=== PATIENT | female | born 1960 | race Caucasian/White ===

== ENCOUNTER → 2018-01-27 07:48 | Outpatient (CLI) | payer OTHER, SELFPAY ==
--- NOTE | 2018-01-27 07:54 | HPBI_ITS ---
MAMMOGRAPHY - BILATERAL SCREENING REASON FOR EXAM: Female, 57 years old. Routine annual screening examination. PERTINENT HISTORY: Non-contributory. TECHNIQUE: Digital bilateral breast be (3D mammographic acquisition) in the CC and MLO projections. 2-D mediolateral oblique (MLO) and craniocaudad (CC) views of both breasts were obtained. CAD: Full Field Digital Mammography with Computer Added Detection was performed. COMPARISON: None. Baseline examination. FINDINGS: Breast Composition: There are scattered areas of fibroglandular density. There are no dominant masses or suspicious calcifications. No other significant abnormalities are identified. HPBI/SCREENING MAMM (CAD), BILAT IMPRESSION: Negative screening mammogram. Yearly followup mammogram recommended. (A) ASSESSMENT CATEGORY: BIRADS Category 1: Negative. A letter regarding these results will be sent to the patient by the facility within 30 days. Approximately 10% of breast cancers are not detected by mammography. A normal mammogram should not delay biopsy of a clinically suspicious abnormality. [id number] Electronically Signed: Olvin Stoll MD at 9:23 EDT Tel [phone], Service support ,
== END ==
PROVIDERS: PCP Family Medicine; Visit Provider Family Medicine
DX: Z12.31 Encounter for screening mammogram for malignant neoplasm of breast (principal)
CPT/HCPCS: 77063; 77067

== ENCOUNTER → 2019-04-20 09:38 | Outpatient (CLI) | payer OTHER, SELFPAY ==
--- NOTE | 2019-04-20 09:57 | RAD_ITS ---
STUDY: X-RAY CHEST REASON FOR EXAM: Female, 58 years old. Chest and back pain. TECHNIQUE: Frontal and lateral views of the chest. COMPARISON: None. FINDINGS: The lungs are clear and expanded. There is no demonstrated pleural abnormality. Normal size heart. Normal mediastinum and jeremías. Normal visualized pulmonary arteries. Normal visualized aortic arch and descending thoracic aorta. Normal visualized thoracic spine. Normal visualized ribs, clavicles, and shoulders. There is no demonstrated abnormality of the visualized soft tissue structures of the upper abdomen. RAD/Chest PA and Lateral IMPRESSION: Normal x-ray examination of the chest. Electronically Signed: Gerardo Harris MD at 22:21 EDT , Service support ,
[2019-04-20 12:06] LABS: Absolute Lymphocyte Count 1.23 X10^3/ul (0.83-4.51); Absolute Neutrophil Count 3.8 X10^3/uL (2.0-7.7); Basophil# 0.01 X10^3/uL; Basophil% 0.2 % (0-1); Eosinophil# 0.02 X10^3/uL; Eosinophils% 0.4 % (0-5); Hematocrit 39.2 % (37-47); Hemoglobin 12.2 g/dl (12.0-15.0); Lymphocyte # 1.23 X10^3/ul (4.0); Lymphocyte % 22.3 % (19-41); Mean Corp Hgb Conc 31.1 g/gl (32-36); Mean Corpuscular Hgb 29.2 pg (27.0-32.0); Mean Corpuscular Volume 93.8 fL (81-99); Mean Platelet Vol. 10.5 fl (6.2-12.0); Monocyte# 0.43 X10^3/uL; Monocyte% 7.8 % (0-10); Neutrophil # 3.82 X10^3/uL (2.7-7.7); Neutrophil % 69.3 % (47-70); Platelet Count 270 K/mm3 (150-450); RBC Distribution Width CV 13.2 % (11.6-14.6); RBC Distribution Width SD 43.9 fl (35.1-43.9); Red Blood Count 4.18 M/mm3 (4.2-5.4); White Blood Count 5.5 K/mm3 (4.4-11.0)
[2019-04-20 12:07] LABS: POSITIVE COUNT NO; POSITIVE DIFFERENTIAL NO; POSITIVE MORPHOLOGY NO
[2019-04-20 12:50] LABS: AST(SGOT) 21 U/L (15-37); Alanine Aminotransfer ALT/SGPT 28 U/L (13-56); Albumin, Serum 3.8 g/dL (3.2-5.0); Alkaline Phosphatase 75 U/L (45-117); Anion Gap 6 (5-15); BUN 15 mg/dL (7-18); BUN/Creat Ratio 23.4 RATIO (10-20); Calcium,Total 8.9 mg/dL (8.5-10.1); Chloride 105 mmol/L (98-107); Cholesterol 222 mg/dL (200); Creatinine, Serum 0.64 mg/dL (0.55-1.02); EST Glomerular Filtration Rate 100 mL/min (>60); Est Glom Filt Rate - Afr Amer 121 mL/min (>60); Globulin 3.8 g/dL (2.2-4.2); Glucose 92 mg/dL (74-106); High Density Lipoprotein 63 mg/dL; Potassium 4.2 mmol/L (3.5-5.1); Protein, Total 7.6 g/dL (6.4-8.2); Sodium Level 139 mmol/L (136-145); Triglycerides 150 mg/dL; Very Low Density Lipoprotein 30 mg/dL (5-40)
== END ==
PROVIDERS: Family Provider Family Medicine; PCP Family Medicine; Referring Provider Family Medicine; Visit Provider Family Medicine
DX: R07.89 Other chest pain (principal)
CPT/HCPCS: 36415; 71046; 80053; 80061; 85025

== ENCOUNTER → 2019-04-28 11:22 | Outpatient (CLI) | payer OTHER, SELFPAY ==
--- NOTE | 2019-04-29 14:10 | STRESSREP ---
Stress Test Report Date: April 28, 2019 Procedure: Exercise tolerance test Indications: Chest pain Consent: Per the patient Procedure: The patient exercised on a Quinten protocol for 8 minutes and 30 seconds achieving a peak heart rate of 164 bpm (102 % predicted maximal heart rate) with a peak blood pressure 190/72 mmHg and a peak MET capacity of approximately 10.1 mET's. The baseline ECG demonstrated normal sinus rhythm, nonspecific ST-T changes. The peak exercise ECG demonstrated sinus tachycardia with 1 to [address] depression in the inferior and lateral leads. [There were no cardiac dysrhythmias pretest, during exercise, or recovery]. The functional capacity was considered normal for age. The patient had no complaint of chest discomfort during exercise or recovery. The examination was discontinued secondary to fatigue. Impression: 1. Technically adequate (percent predicted maximal heart rate greater than 85%) exercise tolerance test 2. Exercise stress test was positive for exercise-induced EKG changes of ischemia. 3. The test is negative for exercise-induced chest pain. 3. [There were no cardiac dysrhythmias during exercise or recovery] This note was generated with [employer] software. It may contain incorrect words, spelling, and punctuation that were not noted in checking the note before signing.
--- NOTE | 2019-04-29 14:32 | STRESSREP_ITS ---
Stress Test Report Date: April 28, 2019 Procedure: Exercise tolerance test Indications: Chest pain Consent: Per the patient Procedure: The patient exercised on a Quinten protocol for 8 minutes and 30 seconds achieving a peak heart rate of 164 bpm (102 % predicted maximal heart rate) with a peak blood pressure 190/72 mmHg and a peak MET capacity of approximately 10.1 mET's. The baseline ECG demonstrated normal sinus rhythm, nonspecific ST-T changes. The peak exercise ECG demonstrated sinus tachycardia with 1 to [address] depression in the inferior and lateral leads. [There were no cardiac dysrhythmias pretest, during exercise, or recovery]. The functional capacity was considered normal for age. The patient had no complaint of chest discomfort during exercise or recovery. The examination was discontinued secondary to fatigue. Impression: 1. Technically adequate (percent predicted maximal heart rate greater than 85%) exercise tolerance test 2. Exercise stress test was positive for exercise-induced EKG changes of ischemia. 3. The test is negative for exercise-induced chest pain. 3. [There were no cardiac dysrhythmias during exercise or recovery] This note was generated with [employer] software. It may contain incorrect words, spelling, and punctuation that were not noted in checking the note before signing.
== END ==
PROVIDERS: Family Provider Family Medicine; PCP Family Medicine; Referring Provider Family Medicine; Visit Provider Family Medicine
DX: R07.89 Other chest pain (principal)
CPT/HCPCS: 93017

== ENCOUNTER → 2019-05-26 06:15 | Outpatient (CLI) | payer OTHER, SELFPAY ==
[2019-05-04 11:46] VITALS: BMI 23.3
--- NOTE | 2019-05-31 09:53 | STRESSREP ---
Stress Test Report Date: 05/26/2019 Procedure: Exercise tolerance test/imaging study Indications: [Abnormal treadmill stress test] Consent: Per the patient Procedure: The patient exercised on a Quinten protocol for 8 minutes and 30 seconds achieving a peak heart rate of 166 bpm (104 % predicted maximal heart rate) with a peak blood pressure 198/68 mmHg and a peak MET capacity of 10.1 METs. The baseline ECG demonstrated normal sinus rhythm, no significant ST-T changes. The peak exercise ECG demonstrated sinus tachycardia with about [address] depressions in the inferior and lateral leads. EKG during recovery revealed return of ST segments to baseline [There were no cardiac dysrhythmias pretest, during exercise, or recovery]. The functional capacity was considered above average for age. There was [no complaint of chest discomfort during exercise or recovery]. The examination was discontinued secondary to dyspnea. Impression: 1. Technically adequate (percent predicted maximal heart rate greater than 85%) exercise tolerance test 2. Stress test is negative for exercise-induced EKG changes of ischemia 3. The test test negative for exercise-induced chest pain 4. Functional capacity is above average for age 5. Nuclear images pending Myocardial perfusion imaging study: Technique: The patient was injected with 11.8 mCi of technetium 99m Cardiolite and subsequently rest SPECT Cardiolite nuclear imaging was obtained in the horizontal long, vertical long, and short axis views. The patient exercised on a Quinten protocol. Please see above for details. The patient was injected with 33.1 mCi of technetium 99m Cardiolite and subsequently stress SPECT Cardiolite nuclear imaging was obtained in the horizontal long, vertical long, and short axis views. A gated Cardiolite study at peak stress was obtained. Interpretation: Rest and stress SPECT Cardiolite nuclear imaging status post realignment, normalization, and attenuation correction, demonstrates normal myocardial radioisotope uptake in the rest and stress images. The gated Cardiolite study demonstrates no significant regional wall motion abnormalities. The reported LVEF is greater than 70%. Impression: 1. There is no evidence of significant ischemia or infarction. 2. The gated Cardiolite study reports an LVEF of greater than 70 %. This note was generated with [employer] software. It may contain incorrect words, spelling, and punctuation that were not noted in checking the note before signing.
== END ==
PROVIDERS: Family Provider Family Medicine; PCP Family Medicine; Referring Provider Family Medicine; Visit Provider Family Medicine
DX: R94.39 Abnormal result of other cardiovascular function study (principal)
CPT/HCPCS: 78452; 93017; A9500; A4216

== ENCOUNTER → 2024-09-09 | Outpatient (CLI) | payer MEDICARE, SELFPAY ==
--- NOTE | 2024-09-09 11:40 | BD_ITS ---
STUDY: DUAL ENERGY X-RAY ABSORPTIOMETRY / DXA REASON FOR EXAM: Female, 64 years old. V76.12ScreeningBONE DENSITY REASON FOR EXAM TECHNIQUE: Bone Mineral Density (BMD) measurements of lumbar spine and bilateral hips were obtained. COMPARISON: None. FINDINGS: Lumbar Spine (L1-L4): g/cm2 (0.848) / T-score (-1.8) / Z-score (0.0) Findings are suggestive of osteopenia with a moderate fracture risk. Left Femur Total: g/cm2 (0.628) / T-score (-2.6) / Z-score (-1.3) Left Femoral Neck: g/cm2 (0.526) / T-score (-2.9) / Z-score (-1.3) Right Femur Total: g/cm2 (0.590) / T-score (-2.9) / Z-score (-1.6) Right Femoral Neck: g/cm2 (0.510) / T-score (-3.1) / Z-score (-1.5) BD/Dexa Bone Density Study IMPRESSION: The patient is considered osteoporotic as outlined below according to World Jovanny Organization (WHO) criteria with a high fracture risk. Reference Information: The T-score is the number of standard deviations above or below the standard which is normal for young adults at their peak bone mineral density. The World Health Organization (WHO) interprets the T-scores as follows: Above -1 Normal bone density Between -1 and -2.5 Osteopenia Equal to / or below -2.5 Osteoporosis As a practical clinical guideline, osteopenia may be graded as follows: Mild -1 through -1.5 Moderate -1.6 through -2.0 Severe -2.1 through -2.4 The Z-score is the number of standard deviations above or below age-matched controls. A Z-score of less than -1.5 would be considered abnormal. References: 1. NIH Osteoporosis and Related Bone Diseases www osteo.org 2. International Society for Clinical Densitometry www iscd.org 3. National Osteoporosis Foundation www nof.org Electronically Signed: Olvin Stoll MD at 10:11 EDT ,
--- NOTE | 2024-09-09 11:40 | BI_ITS ---
MAMMOGRAPHY - BILATERAL SCREENING REASON FOR EXAM: Female, 64 years old. Routine annual screening examination. PERTINENT HISTORY: Non-contributory. TECHNIQUE: Digital bilateral breast edmund (3D mammographic acquisition) in the CC and MLO projections. 2-D mediolateral oblique (MLO) and craniocaudad (CC) views of both breasts were obtained. CAD: Full Field Digital Mammography with Computer Added Detection was performed. COMPARISON: Comparison is made with prior study dated January 27, 2018. FINDINGS: Breast Composition: There are scattered areas of fibroglandular density. There are no dominant masses or suspicious calcifications. No other significant abnormalities are identified. There has been no significant change since the prior study. BI/SCRN MAMM (CAD)W/EDMUND BILAT IMPRESSION: Stable bilateral screening mammogram. Yearly follow-up mammogram recommended. (A) ASSESSMENT CATEGORY: BIRADS Category 1: Negative. A letter regarding these results will be sent to the patient by the facility within 30 days. Approximately 10% of breast cancers are not detected by mammography. A normal mammogram should not delay biopsy of a clinically suspicious abnormality. [id number] Electronically Signed: Olvin Stoll MD at 13:11 EDT ,
== END | disposition home or self-care (01) ==
PROVIDERS: PCP Family Medicine; Referring Provider Family Medicine; Visit Provider Family Medicine
DX: Z12.31 Encounter for screening mammogram for malignant neoplasm of breast (principal); N95.9 Unspecified menopausal and perimenopausal disorder
CPT/HCPCS: 77063; 77067; 77080

== ENCOUNTER → 2025-07-14 | Outpatient (CLI) | payer MEDICARE, SELFPAY ==
--- NOTE | 2025-07-14 11:50 | RAD_ITS ---
EXAM: XR Lumbosacral Spine, 4 or 5 Views CLINICAL INDICATION: LOW BACK PAIN, DOWN LEFT SIDE TECHNIQUE: Frontal, lateral and bilateral oblique views of the lumbar spine. COMPARISON: No relevant prior studies available. FINDINGS: VERTEBRAE: Anterior spondylolisthesis of L4 over L5 by 14 mm. Mild facet arthropathy of L3 to S1 with endplate degenerative changes and disc degeneration. No acute fracture. SACRUM/COCCYX: Unremarkable as visualized. No acute fracture. DISC SPACES: No acute findings. No significant narrowing. SOFT TISSUES: Unremarkable. RAD/L/S Spine Min 4 Views IMPRESSION: 1. Anterior spondylolisthesis of L4 over L5 by 14 mm. 2. If symptoms persist, further evaluation with MRI is recommended. Reading Location: [id number]
--- OUTSIDE RECORDS SUMMARY | 2025-07-14 15:49 | XMS RPT_ITS | CCD ---
Author Organization [place] [employer] [facility] Care Team Providers Care Nurse Research Name Role Phone Ngoc Foley Referring Unavailable Ngoc Foley Attending Unavailable Ngoc Foley Primary Care Unavailable JANICE VALENZUELA, DR SAVAGE Primary Care Physician [phone] MER CLOUD Attending Unavailable DR NGOC FOLEY MD Primary Care Unavailable Problems Problem Classification Problem Date Documented Da te Episodic/Chronic Other screening for suspected conditions (not mental disorders or infectious disease) (1 source) Encounter for screening mammogram for malignant neoplasm of breast; Translations: [Encounter for screening mammogram for malignant neoplasm of breast] Onset: 09-29-2024 Episodic Results Test Name Value Interpretation Reference Range Facil ity Dexa Bone Density Studyon Dexa Bone Density Study [facility] Imaging Services [address] [place] [address] Dexa Bone Density Study MR#: [id number] Acct: [id number] Name: ZOEY TOLBERT Rep #: [id number] : 1960 F 64 From: Olvin romero MD PCP: Dr. Ngoc Foley MD Status: REG [facility] Study: Dexa Bone Density Study Date of Exam: 09/09/24 Exam# [id number] Ordering Dr: Ngoc Foley MD [id number] STUDY: DUAL ENERGY X-RAY ABSORPTIOMETRY / DXA REASON FOR EXAM: Female, 64 years old. V76.12ScreeningBONE DENSITY REASON FOR EXAM TECHNIQUE: Bone Mineral Density (BMD) measurements of lumbar spine and bilateral hips were obtained. COMPARISON: None. FINDINGS: Lumbar Spine (L1-L4): g/cm2 (0.848) / T-score (-1.8) / Z-score (0.0) Findings are suggestive of osteopenia with a moderate fracture risk. Left Femur Total: g/cm2 (0.628) / T-score (-2.6) / Z-score (-1.3) Left Femoral Neck: g/cm2 (0.526) / T-score (-2.9) / Z-score (-1.3) Right Femur Total: g/cm2 (0.590) / T-score (-2.9) / Z-score (-1.6) Right Femoral Neck: g/cm2 (0.510) / T-score (-3.1) / Z-score (-1.5) BD/Dexa Bone Density Study IMPRESSION: The patient is considered osteoporotic as outlined below according to World Jovanny Organization (WHO) criteria with a high fracture risk. Reference Information: The T-score is the number of standard deviations above or below the standard which is normal for young adults at their peak bone mineral density. The World Health Organization (WHO) interprets the T-scores as follows: Above -1 Normal bone density Between -1 and -2.5 Osteopenia Equal to / or below -2.5 Osteoporosis As a practical clinical guideline, osteopenia may be graded as follows: Mild -1 through -1.5 Moderate -1.6 through -2.0 Severe -2.1 through -2.4 The Z-score is the number of standard deviations above or below age-matched controls. A Z-score of less than -1.5 would be considered abnormal. References: 1. NIH Osteoporosis and Related Bone Diseases www osteo.org 2. International Society for Clinical Densitometry www iscd.org 3. National Osteoporosis Foundation www nof.org Electronically Signed: Olvin Stoll MD at 10:11 EDT , CC: Dr. Ngoc Foley MD Product Development Actuary: Signed Normal [facility] SCRN MAMM (CAD)W/EDMUND BILATo n 09-09-2024 SCRN MAMM (CAD)W/EDMUND BILAT [facility] Imaging Services [address] [place] [address] SCRN MAMM (CAD)W/EDMUND BILAT MR#: [id number] Acct: [id number] Name: ZOEY TOLBERT Rep #: [id number] : 1960 64 From: Olvin romero MD PCP: Dr. Ngoc Foley MD Status: REG CL Study: SCRN MAMM (CAD)W/EDMUND BILAT Date of Exam: 08/17 04/08 Exam# [id number] Ordering Dr: Ngoc Foley MD [id number] MAMMOGRAPHY - BILATERAL SCREENING REASON FOR EXAM: Female, 64 years old. Routine annual screening examination. PERTINENT HISTORY: Non-contributory. TECHNIQUE: Digital bilateral breast edmund (3D mammographic acquisition) in the CC and MLO projections. 2-D mediolateral oblique (MLO) and craniocaudad (CC) views of both breasts were obtained. CAD: Full Field Digital Mammography with Computer Added Detection was performed. COMPARISON: Comparison is made with prior study dated January 27, 2018. FINDINGS: Breast Composition: There are scattered areas of fibroglandular density. There are no dominant masses or suspicious calcifications. No other significant abnormalities are identified. There has been no significant change since the prior study. BI/SCRN MAMM (CAD)W/EDMUND BILAT IMPRESSION: Stable bilateral screening mammogram. Yearly follow-up mammogram recommended. (A) ASSESSMENT CATEGORY: BIRADS Category 1: Negative. A letter regarding these results will be sent to the patient by the facility within 30 days. Approximately 10% of breast cancers are not detected by mammography. A normal mammogram should not delay biopsy of a clinically suspicious abnormality. [id number] Electronically Signed: Olvin Stoll MD at 13:11 EDT , CC: Dr. Ngoc Foley MD Product Development Actuary: Signed [facility] Vital Signs Date Time Vital Sign Value Performing Clinician Faci lity 10-17-2024 09:27-0500 Diastolic Blood Pressure Non-Invasive 67 mm[Hg] DR MER CLOUD MD [facility] 10-17-2024 09:27-0500 Heart rate 73 /min DR MER CLOUD MD [facility] 10-17-2024 09:27-0500 Respiratory rate 18 /min DR MER CLOUD MD [facility] 10-17-2024 09:27-0500 Systolic Blood Pressure Non-Invasive 134 mm[Hg] DR MER CLOUD MD [facility] 10-17-2024 09:20-0500 Diastolic Blood Pressure Non-Invasive 78 mm[Hg] DR MER CLOUD MD [facility] 10-17-2024 09:20-0500 Heart rate 78 /min DR MER CLOUD MD [facility] 10-17-2024 09:20-0500 Respiratory rate 20 /min DR MER CLOUD MD [facility] 10-17-2024 09:20-0500 Systolic Blood Pressure Non-Invasive 133 mm[Hg] DR MER CLOUD MD [facility] 10-17-2024 09:13-0500 Diastolic Blood Pressure Non-Invasive 66 mm[Hg] DR MER CLOUD MD [facility] 10-17-2024 09:13-0500 Heart rate 74 /min DR MER CLOUD MD [facility] 10-17-2024 09:13-0500 Respiratory rate 16 /min DR MER CLOUD MD [facility] 10-17-2024 09:13-0500 Systolic Blood Pressure Non-Invasive 119 mm[Hg] DR MER CLOUD MD [facility] 10-17-2024 09:05-0500 Body temperature 97.7 [degF] DR MER CLOUD MD [facility] 10-17-2024 09:00-0500 Respiratory Rate - Anes 21 br/min DR MER CLOUD MD [facility] 10-17-2024 08:55-0500 Respiratory Rate - Anes 22 br/min DR MER CLOUD MD [facility] 10-17-2024 08:50-0500 Respiratory Rate - Anes 15 br/min DR MER CLOUD MD [facility] 10-17-2024 07:53-0500 Body height 176.[address] MER CLOUD MD [facility] 10-17-2024 07:53-0500 Body temperature 97.34 [degF] DR MER CLOUD MD [facility] 10-17-2024 07:53-0500 Body weight 61.[address] MER CLOUD MD [facility] 10-17-2024 07:53-0500 Heart rate 75 /min DR MER CLOUD MD [facility] Encounters Encounter Date Encounter Type Care Provider Facility Start: 10-17-2024 End: 10-17-2024 ambulatory MER CLOUD Facility:[facility] Start: 10-17-2024 End: 10-17-[address] MER CLOUD MD [facility] Start: 09-09-2024 End: 09-09-2024 ambulatory Ngoc Foley Facility:[facility] Procedures Date Procedure Procedure Detail Performing Clinician Colonoscopy DR MER CABEZAS MD Payers Date Payer Category Payer Medicare [id number] 2024 Self-pay 1960 Unknown [id number] Unknown [id number] Social History Date Type Detail Facility Start: 10-17-2024 Tobacco smoking status Never s moked tobacco (finding) [facility] Sex Assigned At Female [facility] Functional Status Date Assessment Result Facility 10-17-2024 Functional Status Repositions self [facility] 10-17-2024 Functional Status Maintained [facility] Mental Status Date Assessment Result Facility 10-17-2024 Mental Status Oriented x 4 [facility] Evaluation + Plan note 10-17-2024 Note Date & Type Note Facility 10-17-2024 Evaluation + Plan note Extrac demond from: Title:Clinical Document Author:MER CLOUD Date:10/17/24 [place] ADMISSION HISTORY AN D PHYSICIAL CHIEF COMPLAINT: HISTORY OF PRESENT ILLNESS: REVIEW OF SYSTEMS: ACTIVE PROBLEMS: No qualifying data available for Problems MEDICATIONS: Active Inpt Meds: None Active PRN Meds: None One Time Meds: None Active IV Meds: Lactated Ringers Infusion 1,000 mL (LR 1,000 mL) Start: 10/17/24 7:52:00 EST, Rate: 50 mL/hr, 10/17/24 7:52:00 EST Sodium Chloride 0.9% intravenous solution 500 mL (Normal Saline 500 mL 500 mL) Start: 10/17/24 7:58:00 EST, Rate: 20 mL/hr, 10/17/24 7:58:00 EST ALLERGIES: (1) NKA FAMILY HISTORY: SOCIAL HISTORY: PHYSICAL EXAM: VITALS: FwponbUlrmWNIfggdSLViQ3EZV5CaoyEx(kg) 10/17 07:5336.3--75----RA10/17 61.4 24 Hr Tmax: 36.3 at 10/17 07:53 36 Hr Tmax: 36.3 at 10/17 07:53 Vital Signs are the last 5 in the past 48 hours. Weights display the last 5 within 7 days. Initial Wt: 10/17 61.4 kg 135 lb Current Wt: 10/17 61.4 kg 135 lb GENERAL: HEENT: CARDIOVASCULAR: RESPIRATORY: ABDOMEN: EXREMETIES: NEUROLOGICAL: PSYCHIATRIC: LABS: No 36hr Lab Data DIAGNOSTICS: IMPRESSION: PLAN: History and Physical Update I have examined the patient; reviewed the H&P and there are no changes to the H&P unless noted below. [facility] Hospital Discharge instructions 10-17-2024 Note Date & Type Note Facility 10-17-2024 Hospital Discharg e instructions Patient Education 10/17/2024 09:12:09 Monitored Anesthesia Care, Care After Monitored Anesthesia Care, Care After These instructions provide you with information about caring for yourself after your procedure. Your health care provider may also give you more specific instructions. Your treatment has been planned according to current medical practices, but problems sometimes occur. Call your health care provider if you have any problems or questions after your procedure. What can I expect after the procedure? After your procedure, you may: Feel sleepy for several hours. Feel clumsy and have poor balance for several hours. Feel forgetful about what happened after the procedure. Have poor judgment for several hours. Feel nauseous or vomit. Have a sore throat if you had a breathing tube during the procedure. Follow these instructions at home: For at least 24 hours after the procedure: Have a responsible adult stay with you. It is important to have someone help care for you until you are awake and alert. Rest as needed. Do not: ?Participate in activities in which you could fall or become injured. ?Drive. ?Use heavy machinery. ?Drink alcohol. ?Take sleeping pills or medicines that cause drowsiness. ?Make important decisions or sign legal documents. ?Take care of children on your own. Eating and drinking Follow the diet that is recommended by your health care provider. If you vomit, drink water, juice, or soup when you can drink without vomiting. Make sure you have little or no nausea before eating solid foods. General instructions Take gofl-fxe-bzokkbm and prescription medicines only as told by your health care provider. If you have sleep apnea, surgery and certain medicines can increase your risk for breathing problems. Follow instructions from your health care provider about wearing your sleep device: ?Anytime you are sleeping, including during daytime naps. ?While taking prescription pain medicines, sleeping medicines, or medicines that make you drowsy. If you smoke, do not smoke without supervision. Keep all follow-up visits as told by your health care provider. This is important. Contact a health care provider if: You keep feeling nauseous or you keep vomiting. You feel light-headed. You develop a rash. You have a fever. Get help right away if: You have trouble breathing. Summary For several hours after your procedure, you may feel sleepy and have poor judgment. Have a responsible adult stay with you for at least 24 hours or until you are awake and alert. This information is not intended to replace advice given to you by your health care provider. Make sure you discuss any questions you have with your health care provider. Document Released: 02/22/2017 Document Revised: 01/31/2019 Document Reviewed: 02/22/2017 [employer] Patient Education 2020 [employer]. 10/17/2024 09:12:00 Colonoscopy, Adult, Care After, Scdn-bg-Ccrm Colonoscopy, Adult, Care After This sheet gives you information about how to care for yourself after your procedure. Your doctor may also give you more specific instructions. If you have problems or questions, call your doctor. What can I expect after the procedure? After the procedure, it is common to have: A small amount of blood in your poop for 24 hours. Some gas. Mild cramping or bloating in your belly. Follow these instructions at home: General instructions For the first 24 hours after the procedure: ?Do not drive or use machinery. ?Do not sign important documents. ?Do not drink alcohol. ?Do your daily activities more slowly than normal. ?Eat foods that are soft and easy to digest. Take znzj-rzn-dtdlruu or prescription medicines only as told by your doctor. To help cramping and bloating: Try walking around. Put heat on your belly (abdomen) as told by your doctor. Use a heat source that your doctor recommends, such as a moist heat pack or a heating pad. ?Put a towel between your skin and the heat source. ?Leave the heat on for 20 30 minutes. ?Remove the heat if your skin turns bright red. This is especially important if you cannot feel pain, heat, or cold. You can get burned. Eating and drinking Drink enough fluid to keep your pee (urine) clear or pale yellow. Return to your normal diet as told by your doctor. Avoid heavy or fried foods that are hard to digest. Avoid drinking alcohol for as long as told by your doctor. Contact a doctor if: You have blood in your poop (stool) 2 3 days after the procedure. Get help right away if: You have more than a small amount of blood in your poop. You see large clumps of tissue (blood clots) in your poop. Your belly is swollen. You feel sick to your stomach (nauseous). You throw up (vomit). You have a fever. You have belly pain that gets worse, and medicine does not help your pain. Summary After the procedure, it is common to have a small amount of blood in your poop. You may also have mild cramping and bloating in your belly. For the first 24 hours after the procedure, do not drive or use machinery, do not sign important documents, and do not drink alcohol. Get help right away if you have a lot of blood in your poop, feel sick to your stomach, have a fever, or have more belly pain. This information is not intended to replace advice given to you by your health care provider. Make sure you discuss any questions you have with your health care provider. Document Released: 12/05/2011 Document Revised: 09/02/2018 Document Reviewed: 07/27/2017 [employer] Patient Education 2020 [employer]. Follow Up Care 09/21/2024 10:58:52 With:MER CLOUD MD Address: [address] [facility] [facility] [address] [place] [address] [phone] When: Unknown Comments:CALL DR CLOUD WITH ANY QUESTIONS OR CONCERNS. GO TO THE EMERGENCY ROOM WITH ANY URGENT CONCERNS. [facility] Clinical Note 10-17-2024 Note Date & Type Note Facility 10-17-2024 Note Discharge Instructions Thank you for allowing [facility] to assist you with your healthcare needs. The following is important discharge information regarding your hospital visit. Your Care Team NGOC FOLEY MD, DR.. Your Diagnosis CLEAN COLONOSCOPY. What to do next Follow Up Appointments Follow Up with MER CLOUD MD [address] [facility] [address] [place] [phone] Additional Information: CALL DR CLOUD WITH ANY QUESTIONS OR CONCERNS. GO TO THE EMERGENCY ROOM WITH ANY URGENT CONCERNS. The Following Activity and Diet Have Been Ordered for You Discharge Activity - Ordered -- NO activity restrictions, 10/17/24 9:02:00 EST Discharge Diet - Ordered -- Follow the post-operative/post-procedure diet instructions provided by your physician's office., 10/17/24 9:02:00 EST The Following Equipment Has Been Ordered for You Discharge Home Equipment Discharge Wound Care - Ordered -- Follow the post-operative/post-procedure wound care instructions provided by your physician's office., 10/17/24 9:02:00 EST Allergies NKA Medications Please ask your primary doctor or pharmacist before taking any other medication not listed, including over the counter drugs, herbal medications, vitamins and or supplements as they may interact with your home medications. Please take this list to your next doctor s visit. Bring all medications you take, including over the counter medications, herbals and other supplements with you to your doctor s visit. Patients and families are reminded to discard old lists and to update any records with all medication providers or retail pharmacies. Education Materials Monitored Anesthesia Care, Care After These instructions provide you with information about caring for yourself after your procedure. Your health care provider may also give you more specific instructions. Your treatment has been planned according to current medical practices, but problems sometimes occur. Call your health care provider if you have any problems or questions after your procedure. What can I expect after the procedure? After your procedure, you may: Feel sleepy for several hours. Feel clumsy and have poor balance for several hours. Feel forgetful about what happened after the procedure. Have poor judgment for several hours. Feel nauseous or vomit. Have a sore throat if you had a breathing tube during the procedure. Follow these instructions at home: For at least 24 hours after the procedure: Have a responsible adult stay with you. It is important to have someone help care for you until you are awake and alert. Rest as needed. Do not: ? Participate in activities in which you could fall or become injured. ? Drive. ? Use heavy machinery. ? Drink alcohol. ? Take sleeping pills or medicines that cause drowsiness. ? Make important decisions or sign legal documents. ? Take care of children on your own. Eating and drinking Follow the diet that is recommended by your health care provider. If you vomit, drink water, juice, or soup when you can drink without vomiting. Make sure you have little or no nausea before eating solid foods. General instructions Take aebv-rto-yvdkiis and prescription medicines only as told by your health care provider. If you have sleep apnea, surgery and certain medicines can increase your risk for breathing problems. Follow instructions from your health care provider about wearing your sleep device: ? Anytime you are sleeping, including during daytime naps. ? While taking prescription pain medicines, sleeping medicines, or medicines that make you drowsy. If you smoke, do not smoke without supervision. Keep all follow-up visits as told by your health care provider. This is important. Contact a health care provider if: You keep feeling nauseous or you keep vomiting. You feel light-headed. You develop a rash. You have a fever. Get help right away if: You have trouble breathing. Summary For several hours after your procedure, you may feel sleepy and have poor judgment. Have a responsible adult stay with you for at least 24 hours or until you are awake and alert. This information is not intended to replace advice given to you by your health care provider. Make sure you discuss any questions you have with your health care provider. Document Released: 02/22/2017 Document Revised: 01/31/2019 Document Reviewed: 02/22/2017 [employer] Patient Education 2020 [employer]. Colonoscopy, Adult, Care After This sheet gives you information about how to care for yourself after your procedure. Your doctor may also give you more specific instructions. If you have problems or questions, call your doctor. What can I expect after the procedure? After the procedure, it is common to have: A small amount of blood in your poop for 24 hours. Some gas. Mild cramping or bloating in your belly. Follow these instructions at home: General instructions For the first 24 hours after the procedure: ? Do not drive or use machinery. ? Do not sign important documents. ? Do not drink alcohol. ? Do your daily activities more slowly than normal. ? Eat foods that are soft and easy to digest. Take ehku-jtw-dudsseg or prescription medicines only as told by your doctor. To help cramping and bloating: Try walking around. Put heat on your belly (abdomen) as told by your doctor. Use a heat source that your doctor recommends, such as a moist heat pack or a heating pad. ? Put a towel between your skin and the heat source. ? Leave the heat on for 20 30 minutes. ? Remove the heat if your skin turns bright red. This is especially important if you cannot feel pain, heat, or cold. You can get burned. Eating and drinking Drink enough fluid to keep your pee (urine) clear or pale yellow. Return to your normal diet as told by your doctor. Avoid heavy or fried foods that are hard to digest. Avoid drinking alcohol for as long as told by your doctor. Contact a doctor if: You have blood in your poop (stool) 2 3 days after the procedure. Get help right away if: You have more than a small amount of blood in your poop. You see large clumps of tissue (blood clots) in your poop. Your belly is swollen. You feel sick to your stomach (nauseous). You throw up (vomit). You have a fever. You have belly pain that gets worse, and medicine does not help your pain. Summary After the procedure, it is common to have a small amount of blood in your poop. You may also have mild cramping and bloating in your belly. For the first 24 hours after the procedure, do not drive or use machinery, do not sign important documents, and do not drink alcohol. Get help right away if you have a lot of blood in your poop, feel sick to your stomach, have a fever, or have more belly pain. This information is not intended to replace advice given to you by your health care provider. Make sure you discuss any questions you have with your health care provider. Document Released: 12/05/2011 Document Revised: 09/02/2018 Document Reviewed: 07/27/2017 [employer] Patient Education 2020 [employer] Additional Information VACCINATE! IT SAVES LIVES! Members of the community who have not yet received the COVID-19 vaccine and would like to receive it can visit one of [facility] vaccine clinics. There are many vaccine clinic locations within the [facility]. For locations and available times, please visit [email or web address] It is important to note that some COVID mobile vaccine clinics are held outdoors and may be canceled in rainy or stormy conditions. To learn more about pediatric vaccinations (ages 5-11), we invite you to visit the [facility] webpage. [email or web address]/pages/[email or web address] 134-Pfstt-Qyxramtbvcj-Frequently-Asked -Questions.html To learn more about the COVID-19 vaccine, we invite you to visit the CDC website for a list of frequently asked questions.https://www.cdc.gov/coronavi betsy/2019-ncov/vaccines/faq.html [employer] Patient Portal Access Instructions: Stay connected with your healthcare team and access your personal medical information anytime with the [employer] Patient Portal. Please follow the directions below to create your [employer] account: 1.Access the email account you provided upon registration to the hospital/physician office.2.Look for an invitation email from [facility].3.Open the email and access the invitation link: Accept Invitation to [employer].4.Fill in the required boss to create your account. To access your account, visit [email or web address]. Click the blue button labeled Access Patient Portal and then log in with the username and password that you created in the steps above. You will be able to view your test results, lab results, a summary of your visits, upcoming appointments and more. There is also a convenient messaging option where you can send secure messages to your provider. In addition, you will have the ability to download any documents or summaries to your computer and/or send the information securely to a physician. Remember that your healthcare information is confidential, so carefully consider who you will allow to register on the [facility] Patient Portal for access to your information. You can also access the [facility] Patient Portal on the [facility] kalee. Simply click on Patient Portal and then log into your account. If you would like to receive a full copy of your medical records, please contact the [facility] Medical Records Department by calling [phone], Thursday through Thursday between 8 a.m. and 4:30 p.m. HOW TO SAFELY DISPOSE OF PRESCRIPTION MEDICATIONS Please use one of the following methods to safely dispose of your unused medications. 1.Use a drug disposal kit: the drug disposal pouch allows you to safely discard your old and unused drugs. Ask your nurse to give you one when you are discharged.2.Visit a local take-back location: Many local pharmacies and police departments have programs that collect old and unwanted prescription drugs. Call your local pharmacy or go to http://Greasebook.Backand/5P6Xv3c to find one close to you.3.Make use of household items: Use cat litter or old coffee grounds to dispose medications if other options are not available. Mix your drugs with these household products, seal them in an airtight container and throw it into the garbage. Call [facility]: [phone] to be sure your drugs can be disposed of in this way. Some medicines may require a different approach.4.Never flush your medications down the toilet. IF YOU HAVE BEEN PRESCRIBED AN OPIOID FOR PAIN If you have been prescribed an opioid (such as hydrocodone, oxycodone or morphine), it is critical to understand the possible side effects and risks of opioid pain medications. Even when taken as directed, opioids can have several side effects including: Tolerance, meaning you might need to take more of a medication for the same pain relief. Nausea, vomiting and/or constipation. Sleepiness, dizziness, dry mouth, confusion, depression or itching. Physical dependence, meaning you have withdrawal symptoms when a medication is stopped, can develop within a few days. KNOW YOUR RESPONSIBILITIES It is important to know exactly how much and how often to take the opioid pain medications you are prescribed. Never take opioids in higher amounts or more often than prescribed. Do not combine opioids with alcohol or other drugs that cause drowsiness, such as benzodiazepines, also known as benzos, including diazepam and alprazolam, muscle relaxants or sleep aids. Never sell or share prescription opioids. This is illegal. Store opioids in a secure place and out of reach of others (including children, family, friends and visitors). The last page of this document has been signed and retained as a CHART COPY. Signatures Patient Education Materials Monitored Anesthesia Care, Care After Colonoscopy, Adult, Care After, [id number] Medication Leaflets My discharge plan and instructions have been reviewed and explained to me and I,ZOEY TOLBERT understand my current condition and have read and understand these discharge instructions. I have received a written copy of the plan/instructions. If I have questions, I am aware that I should contact my doctor. Patient/Solo Truck Driver Signature: _ Date/Time: Relationship to Patient: Witness Name/Signature: Date/Time: [facility] Clinical Note 10-17-2024 Note Date & Type Note Facility 10-17-2024 Note Date of Service 10/17/2024 Procedure Name Screening colonoscopy Consent Taken before procedure Indication Screening colonoscopy Location [facility] Pre-Procedure Exam Screening colonoscopy Procedural Sedation Anesthesia provided a MAC Technique The patient was brought to the endoscopy suite and placed left shoulder down. The colonoscope was passed up to the left colon there was diverticulosis throughout the left colon. The colonoscope was advanced to the cecum and the base the cecum was photographed the terminal ileum was noted. Patient had an excellent preparation. There were no obvious large polyps seen. Back across the transverse colon mucosa may normal below splenic flexure there was good visualization throughout. There was myochosis and diverticulosis throughout the sigmoid colon. In the distal sigmoid the mucosa was normal retroflexion performed in the rectum showed small internal hemorrhoids. Colon was decompressed and the patient tolerated the procedure well. Post-Procedure Exam Screening colonoscopy Findings Screening colonoscopy Complications None apparent Total Time Approximately 25 minutes Assessment/Plan Orders: Lactated Ringers Infusion 1,000 mL(LR 1,000 mL), 1000 mL, Intravenous Sodium Chloride 0.9% intravenous solution 500 mL(Normal Saline 500 mL 500 mL), 500 mL, Intravenous Bedrest, 10/17/24 9:02:00 EST, Strict, continuous, Constant order, Lying on side until alert or as ordered Bedrest, 10/17/24 9:02:00 EST, Strict, continuous, Constant order, Lying on side until alert or as ordered Call Parameters, 10/17/24 9:02:00 EST, Notify for vomiting, severe pain, signs of bleeding, severe abdominal pain, distention or rigidity, Constant order Communication Order (scheduled), 10/17/24 7:52:00 EST, Once, 10/17/24 7:52:00 EST, Pathology Tissue Request Communication Order (scheduled), 10/17/24 7:52:00 EST, Once, 10/17/24 7:52:00 EST, Urine Test or waiver for women of child bearing age Communication Order (scheduled), 10/17/24 7:52:00 EST, Once, 10/17/24 7:52:00 EST, Fasting Blood Sugar priot to procedure of patient is diabetic Diet Order, 10/17/24 9:02:00 EST, Start Meal: Next meal, Clear Liquid Diet, Post exam or after gag reflex returns if EGD, Constant Order, : No, per patient, : No Discharge, 10/17/24 7:52:00 EST, Discharged to: Home, when able to ambulate and after being seen by physician Discharge Activity, NO activity restrictions, 10/17/24 9:02:00 EST Discharge Diet, Follow the post-operative/post-procedure diet instructions provided by your physician's office., 10/17/24 9:02:00 EST Discharge Wound Care, Follow the post-operative/post-procedure wound care instructions provided by your physician's office., 10/17/24 9:02:00 EST Post Procedure Assessment, 10/17/24 9:02:00 EST, Stop Date 10/17/24 9:02:00 EST, [facility] until Anthony Score of 12 or Preprocedure Sign Consent, 10/17/24 7:52:00 EST, Once, For Colonoscopy Vital Signs, 10/17/24 9:02:00 EST, q15min, 1 hour(s), 10/17/24 10:00:00 EST Vital Signs, 10/17/24 9:02:00 EST, q30min, 1 hour(s), 10/17/24 10:00:00 EST Vital Signs PRN, 10/17/24 9:02:00 EST, PRN order Follow Up/Recommendation Repeat a colonoscopy in 10 years Digitally Signed by MER CLOUD MD on 10/17/2024 09:05 AM [facility] Clinical Note 10-17-2024 Note Date & Type Note Facility 10-17-2024 Note [place] ADMISSION HISTORY AND PHYSICIAL CHIEF COMPLAINT: HISTORY OF PRESENT ILLNESS: REVIEW OF SYSTEMS: ACTIVE PROBLEMS: No qualifying data available for Problems MEDICATIONS: Active Inpt Meds: None Active PRN Meds: None One Time Meds: None Active IV Meds: Lactated Ringers Infusion 1,000 mL (LR 1,000 mL) Start: 10/17/24 7:52:00 EST, Rate: 50 mL/hr, 10/17/24 7:52:00 EST Sodium Chloride 0.9% intravenous solution 500 mL (Normal Saline 500 mL 500 mL) Start: 10/17/24 7:58:00 EST, Rate: 20 mL/hr, 10/17/24 7:58:00 EST ALLERGIES: (1) NKA FAMILY HISTORY: SOCIAL HISTORY: PHYSICAL EXAM: VITALS: [id number](kg ) 10/17 07:5336.3--75----RA10/17 61.4 24 Hr Tmax: 36.3 at 10/17 07:53 36 Hr Tmax: 36.3 at 10/17 07:53 Vital Signs are the last 5 in the past 48 hours. Weights display the last 5 within 7 days. Initial Wt: 10/17 61.4 kg 135 lb Current Wt: 10/17 61.4 kg 135 lb GENERAL: HEENT: CARDIOVASCULAR: RESPIRATORY: ABDOMEN: EXREMETIES: NEUROLOGICAL: PSYCHIATRIC: LABS: No 36hr Lab Data DIAGNOSTICS: IMPRESSION: PLAN: History and Physical Update I have examined the patient; reviewed the H&P and there are no changes to the H&P unless noted below. Digitally Signed by MER CLOUD MD on 10/17/2024 08:44 AM [facility] Anesthesiology Consult note 10-17-2024 Note Date & Type Note Facility 10-17-2024 Anesthesiology Consult note Patient: ZOEY TOLBERT Age: 64 years Sex: Female : 1960 Associated Diagnoses: None Author: YARA TOSCANO APRN-BUSINESS PROCESS ENGINEER Preoperative Information Anesthesia history Patient's history: negative. Family's history: negative. Health Status Allergies: Allergic Reactions (Selected) NKA, Allergies (1) ActiveSeverityReaction NKANone Documented Current medications: No qualifying data available Problem list: No qualifying data available Histories Past Medical History: No active or resolved past medical history items have been selected or recorded. Family History: Heart attack Father Procedure history: Colonoscopy ([id number]). Social History: Social & Psychosocial Habits Alcohol 10/17/2024 Use: Never Substance Abuse 10/17/2024 Use: Never Tobacco 10/17/2024 Tobacco Use: Never (less than 100 in l Home/Environment 10/17/2024 Living situation: Home/Independent Nutrition/Health 10/17/2024 Type of diet: Regular Physical Examination No qualifying data available General: Alert and oriented. Airway: Normal temporomandibular joint mobility. Mallampati classification: II (soft palate, fauces, uvula visible). Dentition Evaluation: Denies loose/chipped teeth. Respiratory: Lungs are clear to auscultation, Respirations are non-labored. Cardiovascular: Normal rate, Regular rhythm. Neurologic: Alert, Oriented. Review / Management Results review: No qualifying data available . Assessment and Plan [place] [employer]esthesi[employer] (ASA) physical status classification: Class II. Anesthetic Preoperative Plan Anesthetic technique: MAC. Risks discussed: serious complications. Informed consent: signed by patient. Digitally Signed by YARA TOSCANO on 10/17/2024 07:51 AM [facility] course Narrative Note Date & Type Note Facility Hospital course Narrative No data available for this section [facility] Summary Purpose Family History No Family History Records Found No data available for this section No Family History Records Found Advance Directives No Advanced Directives Records FoundNo Advanced Directives Records Found Additional Source Comments INFORMATION SOURCE (unrecogn ized section and content) DATE CREATED AUTHOR 10/02/2024 [facility] DATE CREATED AUTHOR AUTHOR'S ORGANIZ ATION 10/20/2024 [facility] Patient Care team informatio n (unrecognized section and content) Care Team Personnel Name: NGOC FOLEY MD Member Role: Primary Care Physician Address: Address: [address] [place] [address] Care Team Related Persons Name: MAXINE TOLBERT FOR RECORDS PERTAINING TO PATIENTS WHO ARE OR HAVE BEEN ENROLLED IN A CHEMICAL DEPENDENCY/SUBSTANCEABUSE PROGRAM, SOME INFORMATION MAY BE OMITTED. This clinical summary was aggregated from multiple sources. Caution should be exercised in using it in the provision of clinical care. This summary normalizes information from multiple sources, and as a consequence, information in this document may materially change the coding, format and clinical context of patient data. In addition, data may be omitted in some cases. CLINICAL DECISIONS SHOULD BE BASED ON THE PRIMARY CLINICAL RECORDS. [employer] [facility]. provides no warranty or guarantee of the accuracy or completeness of information in this document.
== END | disposition home or self-care (01) ==
LOC: MTRAD 11:49
PROVIDERS: PCP Family Medicine; Referring Provider Family Medicine; Visit Provider Family Medicine
DX: M54.50 Low back pain, unspecified (principal)
CPT/HCPCS: 72110

== ENCOUNTER → 2025-09-14 | Outpatient (CLI) | payer MEDICARE, SELFPAY ==
[2025-09-14 14:05] LABS: AST(SGOT) 31 U/L (<=31); Alanine Aminotransfer ALT/SGPT 23 U/L (<=34); Albumin, Serum 4.3 g/dL (3.4-4.8); Alkaline Phosphatase 75 U/L (35-104); Anion Gap 10 (5-15); BUN 14 mg/dL (4-19); BUN/Creat Ratio 22.7 RATIO (10-20); Calcium,Total 9.5 mg/dL (7.6-11.0); Carbon Dioxide 26.0 mmol/L (21.0-32.0); Chloride 104 mmol/L (98-108); Cholesterol 243 mg/dL (<=200); Globulin 3.1 g/dL (2.2-4.2); Glucose 91 mg/dL (70-99); Low Density Lipoprotein Calc. 148 mg/dL; Potassium 4.3 mmol/L (3.3-5.1); Triglycerides 108 mg/dL; Very Low Density Lipoprotein 22 mg/dL (5-40); cholesterol:hdl ratio screen 3.18
== END | disposition home or self-care (01) ==
LOC: MTLAB 10:45
PROVIDERS: PCP Family Medicine
DX: Z13.1 Encounter for screening for diabetes mellitus (principal); Z13.220 Encounter for screening for lipoid disorders
CPT/HCPCS: 36415; 80053; 80061; 83036

== ENCOUNTER → 2025-10-13 | Outpatient (CLI) | payer MEDICARE, SELFPAY ==
--- NOTE | 2025-10-13 16:03 | MRI_ITS ---
PROCEDURE: SPINE LUMBAR (ROUTINE) 10/13/2025 REASON FOR EXAM: LUMBAR SPINE PAIN TECHNIQUE: Procedure Code: MRISPL Modality: MR Procedure: SPINE LUMBAR (ROUTINE) COMPARISON: None. FINDINGS: Vertebrae: Present in height and signal. Alignment: Anterolisthesis L4 on L5 by 5 mm. Conus Medullaris: Unremarkable. T12-L1: Disc desiccation. Mild left inferior foramina stenosis. No significant canal stenosis. L1-2: Disc bulge. Mild inferior bilateral foramina stenosis. Mild canal stenosis. L2-3: Disc desiccation. Disc bulge. Facet joint arthropathy. Ligamentum flavum hypertrophy. Mild bilateral foramina stenosis. Mild canal stenosis. L3-4: Disc desiccation. Disc bulge. Facet joint arthropathy. Mild bilateral foramina stenosis. No canal stenosis. L4-5: Uncovered disc bulge. Facet joints arthropathy. Ligamentum flavum hypertrophy. Severe canal stenosis. Severe right foramina stenosis and compression upon the exiting right L4 nerve. Mild left foramina stenosis. L5-S1: Disc bulge. Facet joint arthropathy. No significant foraminal or canal stenosis. Sacrum: Unremarkable. MRI/Spine Lumbar (Routine) IMPRESSION: Degenerate changes predominantly for severe canal stenosis, severe right forami na stenosis and compression upon the exiting right L4 nerve at L4-L5. Reading Location: [facility]
--- OUTSIDE RECORDS SUMMARY | 2025-10-13 16:05 | XMS RPT_ITS | CCD ---
Author Organization [facility] Care Team Providers Care Industry Segment Specialist Name Role Phone JANICE VALENZUELA, DR SAVAGE Primary Care Physician MER CLOUD Attending Unavailable JANICE VALENZUELA, DR SAVAGE Primary Care Unavailable Filippo VALENZUELA, Dr. Hinkle Primary Care Provider [phone] Filippo VALENZUELA, Dr. Hinkle Attending Provider Filippo VALENZUELA, Dr. Hinkle Referring Provider MANAN RICE Attending Unavailable RICE, MANAN Hanson Primary Care Unavailable RICE, MANAN Hanson Admitting Unavailable RICE, MANAN Hanson Admitting Unavailable RICE, MANAN Hanson Attending Unavailable RICE, MANAN Hanson Primary Care Unavailable Rice, Manan Referring Unavailable Rice, Manan Primary Care Unavailable Rice, Manan Attending Unavailable Rice, Manan Referring Unavailable Rice, Manan Primary Care Unavailable Rice, Manan Attending Unavailable Rice, Manan Primary Care Unavailable Rice, Manan Attending Unavailable Rice, Manan Referring Unavailable Rice, Manan Primary Care Unavailable McMorrow ENTERPRISE INFRASTRUCTURE ARCHITECT, Sacha Attending Unavailable McMorrow ENTERPRISE INFRASTRUCTURE ARCHITECT, Sacha Referring Unavailable Rice, Manan Referring Unavailable Rice, Manan Primary Care Unavailable Rice, Manan Attending Unavailable Problems Problem Classification Problem Date Documented Date Episodic/Chronic Nonspecific chest pain (1 source) Chest pain; Translations: [Chest pain, unspecified] 06-01-2019 Episodic Other screening for suspected conditions (not mental disorders or infectious disease) (2 sources) Cardiovascular stress test abnormal; Translations: [Abnormal result of other cardiovascular function study] Onset: 09-23-2025 2019 Episodic Unclassified (2 sources) Low back pain, unspecified; Translations: [Low back pain, unspecified] Onset: 07-20-2025 Results Test Name Value Interpretation Reference Range Facility Comprehensive Metabolic Prof [facility] 09-14-2025 Albumin [Mass/Vol] 4.3 g/dL Normal 3.4-4.8 [facility] Comment on above: Order Comment: Order Date: 08/30/25 Order Info: 0786-1 - CMP Order Info: [id number] - LIPID Performed By: #### L 500.4050 #### [facility] [address] [place], [address] Albumin/Globulin [Mass ratio] 1.4 {ratio} Normal 0.9-2.4 [facility] Comment on above: Order Comment: Order Date: 08/30/25 Order Info: 0786-1 - CMP Order Info: [id number] - LIPID Performed By: #### L 500.4050 #### [facility] [address] [place], [address] ALK PHOS 75 U/L Normal 35-104 [facility] Comment on above: Order Comment: Order Date: 08/30/25 Order Info: 0786-1 - CMP Order Info: [id number] - LIPID Performed By: #### L 500.4050 #### [facility] [address] [place], [address] ALT [Catalytic activity/Vol] 23 U/L Normal <=34 [facility] Comment on above: Order Comment: Order Date: 08/30/25 Order Info: 0786-1 - CMP Order Info: [id number] - LIPID Performed By: #### L 500.4050 #### [facility] [address] [place], [address] AST [Catalytic activity/Vol] 31 U/L Normal <=31 [facility] Comment on above: Order Comment: Order Date: 08/30/25 Order Info: 0786-1 - CMP Order Info: [id number] - LIPID Performed By: #### L 500.4050 #### [facility] [address] [place], [address] Bilirubin [Mass/Vol] 0.46 mg/dL Normal 0.00-1.30 [facility] Comment on above: Order Comment: Order Date: 08/30/25 Order Info: 0786-1 - CMP Order Info: [id number] - LIPID Performed By: #### L 500.4050 #### [facility] [address] [place], [address] BUN/CRE 22.7 RATIO High 10-20 [facility] Comment on above: Order Comment: Order Date: 08/30/25 Order Info: 0786-1 - CMP Order Info: [id number] - LIPID Performed By: #### L 500.4050 #### [facility] [address] [place], [address] Calcium [Mass/Vol] 9.5 mg/dL Normal 7.6-11.0 [facility] Comment on above: Order Comment: Order Date: 08/30/25 Order Info: 0786-1 - CMP Order Info: [id number] - LIPID Performed By: #### L 500.4050 #### [facility] [address] [place], [address] Chloride [Moles/Vol] 104 mmol/L Normal 98-108 [facility] Comment on above: Order Comment: Order Date: 08/30/25 Order Info: 0786-1 - CMP Order Info: [id number] - LIPID Performed By: #### L 500.4050 #### [facility] [address] [place], [address] CO2 [Moles/Vol] 26.0 mmol/L Normal 21.0-32.0 [facility] Comment on above: Order Comment: Order Date: 08/30/25 Order Info: 0786-1 - CMP Order Info: [id number] - LIPID Performed By: #### L 500.4050 #### [facility] [address] [place], [address] Creatinine [Mass/Vol] 0.62 mg/dL Low 0.70-1.20 [facility] Comment on above: Order Comment: Order Date: 08/30/25 Order Info: 0786-1 - CMP Order Info: [id number] - LIPID Performed By: #### L 500.4050 #### [facility] [address] [place], [address] GAP 10 Normal 5-15 [facility] Comment on above: Order Comment: Order Date: 08/30/25 Order Info: 0786- - CMP Order Info: [id number] - LIPID Performed By: #### L 500.4050 #### [facility] [address] [place], [address] GFR/1.73 sq M.predicted among non-blacks MDRD (S/P/Bld) [Vol rate/Area] 98 mL/min/{1.73_m2} Normal >60 [facility] Comment on above: Order Comment: Order Date: 08/30/25 Order Info: 0786- - CMP Order Info: [id number] - LIPID Result Comment: mL/m in/1.73m2 CKD-EPI Creatinine Equation (2020) Performed By: #### L 500.4050 #### [facility] [address] [place], [address] Globulin (S) [Mass/Vol] 3.1 g/dL Normal 2.2-4.2 [facility] Comment on above: Order Comment: Order Date: 08/30/25 Order Info: 0786- - CMP Order Info: [id number] - LIPID Performed By: #### L 500.4050 #### [facility] [address] [place], [address] Glucose [Mass/Vol] 91 mg/dL Normal 70-99 [facility] Comment on above: Order Comment: Order Date: 08/30/25 Order Info: 0786- - CMP Order Info: [id number] - LIPID Performed By: #### L 500.4050 #### [facility] [address] [place], [address] Potassium [Moles/Vol] 4.3 mmol/L Normal 3.3-5.1 [facility] Comment on above: Order Comment: Order Date: 08/30/25 Order Info: 0786-1 - CMP Order Info: [id number] - LIPID Performed By: #### L 500.4050 #### [facility] [address] [place], [address] Sodium [Moles/Vol] 141 mmol/L Normal 133-145 [facility] Comment on above: Order Comment: Order Date: 08/30/25 Order Info: 0786-1 - CMP Order Info: [id number] - LIPID Performed By: #### L 500.4050 #### [facility] [address] [place], [address] T PROT 7.4 g/dL Normal 5.9-8.4 [facility] Comment on above: Order Comment: Order Date: 08/30/25 Order Info: 0786- - CMP Order Info: [id number] - LIPID Performed By: #### L 500.4050 #### [facility] [address] [place], [address] Urea nitrogen [Mass/Vol] 14 mg/dL Normal 4-19 [facility] Comment on above: Order Comment: Order Date: 08/30/25 Order Info: 0786-1 - CMP Order Info: [id number] - LIPID Performed By: #### L 500.4050 #### [facility] [address] [place], [address] Hemoglobin A1con 09-14-2025 HbA1c (Bld) [Mass fraction] 5.6 % Normal <=5.6 [facility] Comment on above: Order Comment: Order Date: 08/30/25 Order Info: [id number] - A1C Result Comment: Norm al < 5.7 % Prediabetic 5.7 - 6.4 % Diabetic >or= 6.5 % Please note range changes. Performed By: #### L 501.9985 #### [facility] [address] [place], [address] Lipid Profileon 09-14-2025 CHOL:HDL 3.18 Normal [facility] Comment on above: Order Comment: Order Date: 08/30/25 Order Info: 0786- - CMP Order Info: [id number] - LIPID Performed By: #### L 500.4100 #### [facility] [address] [place], [place], [id number] (672) Cholesterol [Mass/Vol] 243 mg/dL High <=200 [facility] Comment on above: Order Comment: Order Date: 08/30/25 Order Info: 07 - CMP Order Info: [id number] - LIPID Result Comment: Chol esterol level, Desirable <200 mg/dL Borderline high cholesterol 200-239 mg/dL High cholesterol >=240 mg/dL Recommendations of the NCEP Adult Treatment Panel for the following risk-cutoff thresholds for the [place] population. Performed By: #### L 500.4100 #### [facility] [address] [place], [place], [id number] ([address]17) Cholesterol in HDL [Mass/Vol] 76 mg/dL Normal [facility] Comment on above: Order Comment: Order Date: 08/30/25 Order Info: 0786 - CMP Order Info: [id number] - LIPID Result Comment: Iliana onal Cholesterol Education Program (NCEP) guidelines: <40 mg/dL: Low HDL-cholesterol (major risk factor for CHD) >= 60 mg/dL: High HDL-cholesterol (negative risk factor for CHD) HDL-cholesterol is affected by a number of factors, e.g. smoking, exercise, hormones, sex and age. Performed By: #### L 500.4100 #### [facility] [address] [place], [address] Cholesterol in LDL [Mass/Vol] 148 mg/dL Normal [facility] Comment on above: Order Comment: Order Date: 08/30/25 Order Info: 0786- - CMP Order Info: [id number] - LIPID Result Comment: Bord skpdwa=420-083 mg/dL Higher Uwjb=747 mg/dL or greater Ren Equation 2020 for LDL-C Performed By: #### L 500.4100 #### [facility] [address] [place], [address] Cholesterol in VLDL [Mass/Vol] 22 mg/dL Normal 5-40 [facility] Comment on above: Order Comment: Order Date: 08/30/25 Order Info: 0786-1 - CMP Order Info: [id number] - LIPID Performed By: #### L 500.4100 #### [facility] [address] [place], [address] Triglyceride [Mass/Vol] 108 mg/dL Normal [facility] Comment on above: Order Comment: Order Date: 08/30/25 Order Info: 0786-1 - CMP Order Info: [id number] - LIPID Result Comment: The drugs N-Acetylcysteine and Metamizole may falsely depress this assay. Normal range: <150 mg/dL Borderline High: 150-199 mg/dL High: 200-499 mg/dL Very High: >500 mg/dL Performed By: #### L 500.4100 #### [facility] [address] [place], [address] L/S Spine Min 4 Viewson 06-17 L/S Spine Min 4 Views [facility] [address] [place] [address] L/S Spine Min 4 Views MR#: [id number] Acct: [id number] Name: ZOEY TOLBERT Rep #: [id number] : 1960 F 65 From: Marcos Walker MD PCP: Dr. Manan Rice MD Status: REG CLI Study: L/S Spine Min 4 Views Date of Exam: 07/14/25 Exam# [id number] Ordering Dr: Manan Rice MD EXAM: XR Lumbosacral Spine, 4 or 5 Views CLINICAL INDICATION: LOW BACK PAIN, DOWN LEFT SIDE TECHNIQUE: Frontal, lateral and bilateral oblique views of the lumbar spine. COMPARISON: No relevant prior studies available. FINDINGS: VERTEBRAE: Anterior spondylolisthesis of L4 over L5 by 14 mm. Mild facet arthropathy of L3 to S1 with endplate degenerative changes and disc degeneration. No acute fracture. SACRUM/COCCYX: Unremarkable as visualized. No acute fracture. DISC SPACES: No acute findings. No significant narrowing. SOFT TISSUES: Unremarkable. RAD/L/S Spine Min 4 Views IMPRESSION: 1. Anterior spondylolisthesis of L4 over L5 by 14 mm. 2. If symptoms persist, further evaluation with MRI is recommended. Reading Location: EMN-QE-IG-HOME CC: Dr. Manan Rice MD Ship Construction Teacher: Signed Normal [facility] Vital Signs Date Time Vital Sign Value Performing Clinician Faci lity 10-17-2024 09:27-0500 Diastolic Blood Pressure Non-Invasive 67 mm[Hg] DR MER CLOUD MD [facility] 10-17-2024 09:27-0500 Heart rate 73 /min DR MER CLOUD MD [facility] 10-17-2024 09:27-0500 Respiratory rate 18 /min DR MER CLOUD MD [facility] 10-17-2024 09:27-0500 Systolic Blood Pressure Non-Invasive 134 mm[Hg] DR MER CLOUD MD [facility] 10-17-2024 09:20-0500 Diastolic Blood Pressure Non-Invasive 78 mm[Hg] DR MER CLOUD MD [facility] 10-17-2024 09:20-0500 Heart rate 78 /min DR MER CLOUD MD [facility] 10-17-2024 09:20-0500 Respiratory rate 20 /min DR MER CLOUD MD [facility] 10-17-2024 09:20-0500 Systolic Blood Pressure Non-Invasive 133 mm[Hg] DR MER CLOUD MD [facility] 10-17-2024 09:13-0500 Diastolic Blood Pressure Non-Invasive 66 mm[Hg] DR MER CLOUD MD [facility] 10-17-2024 09:13-0500 Heart rate 74 /min DR MER CLOUD MD [facility] 10-17-2024 09:13-0500 Respiratory rate 16 /min DR MER CLOUD MD [facility] 10-17-2024 09:13-0500 Systolic Blood Pressure Non-Invasive 119 mm[Hg] DR MER CLOUD MD [facility] 10-17-2024 09:05-0500 Body temperature 97.7 [degF] DR MER CLOUD MD [facility] 10-17-2024 09:00-0500 Respiratory Rate - Anes 21 br/min DR MER CLOUD MD [facility] 10-17-2024 08:55-0500 Respiratory Rate - Anes 22 br/min DR MER CLOUD MD [facility] 10-17-2024 08:50-0500 Respiratory Rate - Anes 15 br/min DR MER CLOUD MD [facility] 10-17-2024 07:53-0500 Body height 176.[address] MER CLOUD MD [facility] 10-17-2024 07:53-0500 Body temperature 97.34 [degF] DR MER CLOUD MD [facility] 10-17-2024 07:53-0500 Body weight 61.[address] MER CLOUD MD [facility] 10-17-2024 07:53-0500 Heart rate 75 /min DR MER CLOUD MD [facility] Encounters Encounter Date Encounter Type Care Provider Facility Start: 10-17-2025 ambulatory Manan Rice Facility:[facility] Start: 09-14-2025 End: 09-14-2025 ambulatory Manan Rice Facility:[facility] Start: 08-16-2025 ambulatory MANAN RICE [facility] Start: 08-10-2025 ambulatory MANAN RICE [facility] Start: 08-08-2025 ambulatory Manan Rice Facility:[facility] Start: 07-14-2025 End: 07-14-[address] Manan Rice MD Work Phone: [facility] Start: 07-14-2025 End: 07-14-[address] Manan Rice MD [facility] Work Phone: Start: 07-14-2025 End: 07-14-2025 ambulatory Manan Rice Facility:[facility] Start: 10-17-2024 End: 10-17-2024 ambulatory MER CLOUD Facility:[facility] Start: 10-17-2024 End: 10-17-[address] MER CLOUD MD [facility] Procedures Date Procedure Procedure Detail Performing Clinician Start: 07-14-2025 X-ray of lumbosacral spine Dr. Manan Rice MD Work Phone: Colonoscopy DR MER CABEZAS MD Payers Date Payer Category Payer Self-pay 2024 Unknown [id number] 1960 Unknown [id number] 2.16.8 [id number] 1960 Unknown [id number] 2.16.8 [id number] 1960 Unknown [id number] 2.16.8 [id number] Unknown [id number] Unknown [id number] 2.16.8 [id number] Unknown [id number] 2.16.8 [id number] Unknown [id number] 2.16.8 [id number] Unknown [id number] 2.16.8 [id number] Unknown [id number] 2.16.8 [id number] Social History Date Type Detail Facility Start: 06-01-2019 End: 10-17-2024 Tobacco smoking status Never smoked tobacco (finding) [facility] Start: 1960 Sex Assigned At Female A [facility] Functional Status Date Assessment Result Facility 10-17-2024 Functional Status Repositions self [facility] 10-17-[address] [facility] Mental Status Date Assessment Result Facility 10-17-2024 Mental Status Oriented x 4 [facility] Radiology Diagnostic study note 07-15-2025 Note Date & Type Note Facility 07-15-2025 Radiology Diagnostic study note [facility] [address] [place], [place] [address] L/S Spine Min 4 Views MR#: [id number] Acct: [id number] Name: ZOEY TOLBERT Rep #: [id number] : 1960 F 65 From: Anna Walker MD PCP: Dr. Manan Rice MD Status: GABE GREEN Study:L/S Spine Min 4 Views Date of Exam: 07/14/25 Exam# [id number] Ordering Dr: Manan Rice MD EXAM: XR Lumbosacral Spine, 4 or 5 Views CLINICAL INDICATION: LOW BACK PAIN, DOWN LEFT SIDE TECHNIQUE: Frontal, lateral and bilateral oblique views of the lumbar spine. COMPARISON: No relevant prior studies available. FINDINGS: VERTEBRAE: Anterior spondylolisthesis of L4 over L5 by 14 mm. Mild facet arthropathy of L3 to S1 with endplate degenerative changes and disc degeneration. No acute fracture. SACRUM/COCCYX: Unremarkable as visualized. No acute fracture. DISC SPACES: No acute findings. No significant narrowing. SOFT TISSUES: Unremarkable. RAD/L/S Spine Min 4 Views IMPRESSION: 1. Anterior spondylolisthesis of L4 over L5 by 14 mm. 2. If symptoms persist, further evaluation with MRI is recommended. Reading Location: ITL-VL-PL-HOME CC: Dr. Manan Rice MD ~ Ship Construction Teacher: Signed [facility] Evaluation + Plan note 10-17-2024 Note Date & Type Note Facility 10-17-2024 Evaluation + Plan note Extrac demond from: Title:Clinical Document Author:MER CLOUD Date:10/17/24 OTWAY ADMISSION HISTORY AN D PHYSICIAL CHIEF COMPLAINT: [...] FAMILY HISTORY: SOCIAL HISTORY: PHYSICAL EXAM: VITALS: ClcgtnUyziRDHjqpqPVYwW6MIC4EpfnOu(kg) 10/17 07:5336.3--75----RA10/17 61.4 24 Hr Tmax: 36.3 [...] changes to the H&P unless noted below. [facility] Discharge instructions 10-17-2024 Note Date & [...] before eating solid foods. General instructions Take odtd-nzv-cbawuxc and prescription medicines only as told by [...] 02/22/2017 Document Revised: 01/31/2019 Document Reviewed: 02/22/2017 [facility] Patient Education 2020 3C Plus. 10/17/2024 09:12:00 Colonoscopy, Adult, Care After, Nkmm-vu-Fzeb Colonoscopy, Adult, Care After This sheet gives [...] are soft and easy to digest. Take qitn-cmx-khzwdvf or prescription medicines only as told by [...] 12/05/2011 Document Revised: 09/02/2018 Document Reviewed: 07/27/2017 [facility] Patient Education 2020 3C Plus. Follow Up Care 09/21/2024 10:58:52 With:MER CLOUD MD Address: [address] [phone] When: Unknown Comments:CALL DR CLOUD WITH ANY QUESTIONS OR CONCERNS. GO TO THE EMERGENCY ROOM WITH ANY URGENT CONCERNS. [facility] Clinical Note 10-17-2024 Note Date & Type Note Facility 10-17-2024 Note Discharge Instructions Thank you for allowing [facility] to assist you with your healthcare needs. The following is important discharge information regarding your hospital visit. Your Care Team NGOC FOLEY MD, DR.. Your Diagnosis CLEAN COLONOSCOPY. What to do next Follow Up Appointments Follow Up with MER CLOUD MD Where:[address] [phone] Additional Information: CALL DR CLOUD WITH ANY [...] before eating solid foods. General instructions Take tyro-ftz-qpwplbs and prescription medicines only as told by [...] 02/22/2017 Document Revised: 01/31/2019 Document Reviewed: 02/22/2017 [facility] Patient Education 2020 3C Plus. Colonoscopy, Adult, Care After This sheet gives [...] are soft and easy to digest. Take hgfh-cde-sckxbnp or prescription medicines only as told by [...] 12/05/2011 Document Revised: 09/02/2018 Document Reviewed: 07/27/2017 [employer] Patient Education 2020 [facility] [employer] Additional Information VACCINATE! IT SAVES LIVES! Members of the community who have not yet received the COVID-19 vaccine and would like to receive it can visit one of [facility] vaccine clinics. There are many vaccine clinic locations within the [facility]. For locations and available times, please visit [email or web address] It is important to note that some COVID mobile vaccine clinics are held outdoors and may be canceled in rainy or stormy conditions. To learn more about pediatric vaccinations (ages 5-11), we invite you to visit the [facility] webpage. [email or web address]/pages/[email or web address]-Rsrcl-Tcnbykffufn-Frequently-Asked -Questions.html To learn more about the COVID-19 vaccine, we invite you to visit the CDC website for a list of frequently asked questions.https://www.cdc.gov/coronavi betsy/2019-ncov/vaccines/faq.html [facility] Patient Portal Access Instructions: Stay connected with your healthcare team and access your personal medical information anytime with the [facility] Patient Portal. Please follow the directions below to create your [facility] account: 1.Access the email account you provided upon registration to the hospital/physician office.2.Look for an invitation email from [facility].3.Open the email and access the invitation link: Accept Invitation to [facility].4.Fill in the required boss to create your account. To access your account, visit Knock Knock/Burstlyt. Click the blue button labeled "Access Patient Portal" and then log in with the username [...] you will allow to register on the [facility] Patient Portal for access to your information. You can also access the [facility] Patient Portal on the [facility] kalee. Simply click on "Patient Portal" and then log into your account. If you would like to receive a full copy of your medical records, please contact the [facility] Medical Records Department by calling [phone], Thursday through Thursday between 8 a.m. and [...] Call your local pharmacy or go to [email or web address].[employer]/0T8Uk9s to find one close to you.3.Make use of household items: Use cat litter or old coffee grounds to dispose medications if other options are not available. Mix your drugs with these household products, seal them in an airtight container and throw it into the garbage. Call [facility]: [phone] to be sure your drugs can be [...] Care, Care After Colonoscopy, Adult, Care After, Nndh-tn-Ukly Medication Leaflets My discharge plan and instructions have been reviewed and explained to me and DIDI Jo LAWANDA F understand my current condition and have read and understand these discharge instructions. I have received a written copy of the plan/instructions. If I have questions, I am aware that I should contact my doctor. Patient/[employer] Signature: _ Date/Time: Relationship to Patient: Witness Name/Signature: Date/Time: [facility] Clinical Note 10-17-2024 Note Date & Type Note Facility 10-17-2024 Note Date of Service 10/17/2024 Procedure Name Screening colonoscopy Consent Taken before procedure Indication Screening colonoscopy Location [facility] Pre-Procedure Exam Screening colonoscopy Procedural Sedation Anesthesia [...] MER CLOUD MD on 10/17/2024 09:05 AM [facility] Clinical Note 10-17-2024 Note Date & Type Note Facility 10-17-2024 Note OT[facility]AY ADMISSION HISTORY AND PHYSICIAL CHIEF COMPLAINT: HISTORY [...] FAMILY HISTORY: SOCIAL HISTORY: PHYSICAL EXAM: VITALS: XttvdhRehpFIRsiakPLOkY3HMZ7YfotYv(kg ) 10/17 07:5336.3--75----RA10/17 61.4 24 Hr Tmax: [...] MER CLOUD MD on 10/17/2024 08:44 AM [facility] Anesthesiology Consult note 10-17-2024 Note Date & Type Note Facility 10-17-2024 Anesthesiology Consult note Patient: ZOYE TOLBERT Age: 64 years Sex: Female : 1960 Associated Diagnoses: None Author: YARA TOSCANO APRN-WET ROOM SUPERVISOR Preoperative Information Anesthesia history Patient's history: negative. Family's history: negative. Health Status Allergies: Allergic Reactions (Selected) NKA, Allergies (1) ActiveSeverityReaction NKANone Documented Current medications: No qualifying data available Problem list: No qualifying data available Histories Past Medical History: No active or resolved past medical history items have been selected or recorded. Family History: Heart attack Father Procedure history: Colonoscopy ([id number]). Social History: Social & Psychosocial Habits Alcohol [...] qualifying data available . Assessment and Plan [place] [employer] Anesthesi[employer] (ASA) physical status classification: Class II. Anesthetic Preoperative Plan Anesthetic technique: MAC. Risks discussed: serious complications. Informed consent: signed by patient. Digitally Signed by YARA TOSCANO on 10/17/2024 07:51 AM [facility] Evaluation note Note Date & Type Note Facility Evaluation note No assessment information availa [facility] Work Phone: Hospital course Narrative Note Date & Type Note Facility Hospital course Narrative No data available for this section [facility] Reason for referral (narrative) Note Date & Type Note Facility Reason for referral (narrative) No reason for referral information available [facility] Work Phone: Summary Purpose Family History Relationship Condition Age at Onset Recorded Date/T schuyler sister Myocardial infarction Unknown father Myocardial infarction Unknown mother Diabetes mellitus Unknown Hypertension Unknown Anxiety disorder Unknown No Family History Records Found Advance Directives No Advanced Directives Records FoundNo Advanced Directives Records FoundNo Advanced Directives Records Found Additional Source Comments Patient Care team informatio n (unrecognized section and content) Team Status: Active Member Role/Relationship Status Dates Dr. Ngoc Foley MD Family Provider Active Dr. Manan Rice MD Primary Care Provider Active Team Status: Inactive Member Role/Relationship Status Dates Dr. Manan Rice MD Primary Care Provider Active Start: July 14, 2025 End: July 14, 2025 Dr. Manan Rice MD Attending Provider Active Start: July 14, 2025 End: July 14, 2025 Dr. Manan Rice MD Referring Provider Active Start: July 14, 2025 End: July 14, 2025 INFORMATION SOURCE (unrecogn ized section and content) DATE CREATED AUTHOR 10/20/2024 [facility] DATE CREATED AUTHOR AUTHOR'S ORGANIZ ATION 08/24/2025 [facility] DATE CREATED AUTHOR AUTHOR'S ORGANIZ ATION 09/29/2025 [facility] Goals (unrecognized section and content) Goals may be documented in a n alternate section FOR RECORDS PERTAINING TO PATIENTS WHO ARE [...] BE BASED ON THE PRIMARY CLINICAL RECORDS. [employer] provides no warranty or guarantee of the accuracy or completeness of information in this document.
== END | disposition home or self-care (01) ==
LOC: MRI 16:02
PROVIDERS: PCP Family Medicine; Referring Provider Family Medicine; Visit Provider Family Medicine
DX: M54.50 Low back pain, unspecified (principal)
CPT/HCPCS: 72148